=== PATIENT | female | born 1940 | race Caucasian/White ===

== ENCOUNTER 2016-10-03 08:57 | Day surgery (SDC) | payer BC ==
[2016-09-28 13:25] LABS: HEMOGLOBIN 12.4 g/dL (12.0-16.0)
[2016-09-28 13:47] LABS: BUN (BLOOD UREA NITROGEN) 17 MG/DL (6-23); CALCIUM, SERUM 9.4 MG/DL (8.5-10.4); CHLORIDE, SERUM 105 MMOL/L (96-112); CO2 (CARBON DIOXIDE) 27 MMOL/L (24-34); GFR AFRICAN AMERICAN 42 ML/MIN (>=60); GFR NON AFRICAN AMERICAN 37 ML/MIN (>=60); GLUCOSE, SERUM 91 MG/DL (60-99); SODIUM, SERUM 141 MMOL/L (135-148)
--- NOTE | ~2016-10-03 | OP ---
Record Of Operation [facility] [address] [place]. [address] NAME: GLADYS MONTERO : 42 [place] [facility] [place] [id number] AGE: 76 ADM/REG DATE : 10/03/16 MR#: [id number] REPORT SERV DATE: 10/03/16 DICTATED BY: KESHA LEWIS DATE: 10/03/16 REPORT STATUS : Draft TRANSCRIBED BY: MODAilyn DATE: 10/03/16 DATE OF PROCEDURE: 10/03/2016 BRICK TOSSER: None. PREPROCEDURE DIAGNOSIS: Right renal stenosis. POSTPROCEDURE DIAGNOSIS: Right renal stenosis. PROCEDURE PERFORMED: 1. Ultrasound access, right common femoral artery. 2. Aortogram. 3. Selective angiogram of the right renal artery. 4. Angioplasty of the renal origin with a 5 x2 balloon. ANESTHESIA: MAC local. SPECIMENS: None. ESTIMATED BLOOD LOSS: Minimal. COMPLICATIONS: None. INDICATIONS: Gladys Montero is 76 years old. She has had bilateral renal stents placed in followup. She had a high velocity identified in the right renal stent, suggestive of greater than 70% stenosis. She was offered intervention. Risks, benefits, and alternatives were discussed. She understood and wished to proceed. OPERATIVE COURSE: The patient was brought to the operating room and placed in a supine position on the operating room table. The patient had MAC anesthetic without complications. Bilateral groins were prepped and draped in a sterile fashion. A time-out was performed. Identified the correct patient, procedure, site. We began by using ultrasound to identify the right common femoral artery was patent and free of significant disease. We anesthetized the skin and accessed the artery under ultrasound guidance. A copy of this picture was placed on the chart for review. Once we had access, a wire was passed into the abdominal aorta. The needle was removed and a 5-Nigerian sheath was placed, over the wire. We passed the UF catheter, placed it just above the level of the renal stents and then performed aortography with breathhold technique. This demonstrated significant stenosis in the right renal artery of an excess of 90% at the origin. The distal stent was patent on the left. The stent had a mild 20% stenosis, that was not flow limiting. We gave IV heparin and allowed adequate time for circulation. We sized up to a 6.5-Nigerian torque guide directable sheath. We then used the wire and the sheath to gain access across the right renal artery. This was confirmed by distal arteriography through a TrailBlazer catheter. We then brought up a 5 x 2 balloon and angioplastied the proximal renal stent for 2.5 minutes at 10 atmospheres. Resulting angiogram demonstrated 0% residual stenosis. Wires and catheters were withdrawn. The sheath was wired out and brought down to the right groin. Common Record Of Operation [address] [place]. [address] NAME: GLADYS MONTERO : 42 [place] [facility] [place] [id number] AGE: 76 ADM/REG DATE : 10/03/16 MR#: [id number] REPORT SERV DATE: 10/03/16 DICTATED BY: KESHA LEWIS DATE: 10/03/16 REPORT STATUS : Draft TRANSCRIBED BY: CINDY DATE: 10/03/16 femoral arteriogram demonstrated good location of the sheath and good size of the artery. A StarClose was placed with good hemostasis. No complications. The patient tolerated the procedure well. She was awakened and transferred to the recovery in stable condition. [facility]/CINDY Kesha Lewis MD / [id number] CC: MD Roscoe Quigley MD
[~2016-10-03 08:57] MED LIST: ASAB PO; CARDU2 PO; FISH OIL1200 MG PO; HYDRALAZINE100 MG PO; L20 PO; LANTUSCART SC; LIPITOR10 PO; OCUVITE PO; PLAVIX PO; SYN88 PO; VIT B PO; [UNRECOGNIZED DRUG - REMARK] PO
== END 2016-10-03 17:05 | disposition home or self-care (01) ==
LOC: SDC 08:57 → SSU1 12:39
PROVIDERS: Student in an Organized Health Care Education/Training Program
PROC: 04793ZZ Dilation of Right Renal Artery, Percutaneous Approach (ICD-10-PCS; principal; 2016-10-03 10:45)
PROC: 04H93DZ Insertion of Intraluminal Device into Right Renal Artery, Percutaneous Approach (ICD-10-PCS; 2016-10-03 10:45)
DX: I70.1 Atherosclerosis of renal artery (principal); I12.9 Hypertensive chronic kidney disease with stage 1 through stage 4 chronic kidney disease, or unspecified chronic kidney disease; E11.22 Type 2 diabetes mellitus with diabetic chronic kidney disease; E03.9 Hypothyroidism, unspecified; E11.51 Type 2 diabetes mellitus with diabetic peripheral angiopathy without gangrene; N18.3 Chronic kidney disease, stage 3 (moderate); Z82.49 Family history of ischemic heart disease and other diseases of the circulatory system; Z83.3 Family history of diabetes mellitus; Z88.8 Allergy status to other drugs, medicaments and biological substances; Z79.52 Long term (current) use of systemic steroids; Z79.899 Other long term (current) drug therapy
CPT/HCPCS: 36245; 37246; 75625; 76937; 80048; 85014; 85018; 93005; A9270-GY; C1725; C1769; C1893; C1894; J0690; J3010; Q9967